=== PATIENT | female | born 1990 | race Two or more races ===

== ENCOUNTER 2019-10-18 14:43 | Emergency (ER) | payer OTHER ==
[~2019-10-18] VITALS: Ht 162.6 cm; Wt 77.1 kg
[2019-10-18 14:56] VITALS: BP 114/66
--- NOTE | 2019-10-18 15:03 | NUR ---
ED Nurse Note: Pt from home walked in due to right shoulder pain after a container fell on his right shoulder at work. Incident happened on 10/17/19 around 10pm. Ptis AAO x4, ambulatory. ROM intact and no obvious signs of fracture.
--- NOTE | 2019-10-18 15:27 | NUR ---
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
--- NOTE | 2019-10-18 15:38 | Emergency Room Report ---
History of Present Illness General Chief Complaint: Upper Extremity Injury Source: Patient Present Illness HPI 29 YO female presents to the ED C/O 10/18 in severity right shoulder pain/ S/p heavy box fell onto her right shoulder while at work yesterday. Pt. denies hitting her head. She reports pain is exacerbated with ROM of her right shoulder. She reports pain also in the musculature. She denies pain in the lower portion of the arm: elbow/wrist/hand. She denies shooting pain sensations. Denies numbness tingling or loss of sensation or gross motor movements of the extremities, incontinence of bowel or bladder. Denies CP, Palpitations, LOC, AMS, dizziness, Changes in Vision, weakness or a sudden severe headache. She denies midline neck or back pain. Pt. only PMHx. is DM. 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 Allergies: Coded Allergies: No Known Allergies (Unverified , 10/18/19) COVID-19 Screening Contact w/high risk pt: No Experienced COVID-19 symptoms?: No COVID-19 Testing performed [employer]IATION ELECT[employer]ICIAN: No Patient History Past Medical History: see triage record Past Surgical History: none Pertinent Family History: none Last Menstrual Period: 10/14/19 Now: No Reviewed Nursing Documentation: PMH: Agreed; PSxH: Agreed Nursing Documentation-PMH Past Medical History: No History, Except For Hx Diabetes: Yes Review of Systems All Other Systems: negative except mentioned in HPI Physical Exam Vital Signs Date Time Temp Pulse Resp B/P (MAP) Pulse Ox O2 Delivery O2 Flow Rate FiO2 10/18/19 14:56 99.1 68 17 114/66 (82) 98 Room Air Sp02 EP Interpretation: reviewed, normal General Appearance: no apparent distress, alert, GCS 15, non-toxic Head: normocephalic, atraumatic Eyes: bilateral eye normal inspection, bilateral eye PERRL ENT: hearing grossly normal, normal voice Neck: full range of motion - with some pain when raising above 90* , no bony tend - no midline ttp, tender lateral - right Respiratory: chest non-tender, lungs clear, normal breath sounds, no respiratory distress, no wheezing, speaking full sentences Cardiovascular #1: regular rate, rhythm Cardiovascular #2: 2+ radial (R), 2+ radial (L) Musculoskeletal: back normal, normal range of motion, gait/station normal, tender - right shoulder posteriolateral. FROM. NVI no bruising Neurologic: alert, motor strength/tone normal, oriented x3, sensory intact, responsive, speech normal, normal gait, grossly normal, no focal defects Psychiatric: judgement/insight normal Skin: normal color Medical Decision Making DERICK Gallegos is my supervising Physician whom patient management has been discussed with. Diagnostic Impression: Primary Impression: Contusion of right shoulder region Qualified Codes: S40.011A - Contusion of right shoulder, initial encounter ER Course 29 YO female presents to the ED C/O 10/18 in severity right shoulder pain/ S/p heavy box fell onto her right shoulder while at work yesterday. Pt. denies hitting her head. She reports pain is exacerbated with ROM of her right shoulder. She reports pain also in the musculature. She denies pain in the lower portion of the arm: elbow/wrist/hand. She denies shooting pain sensations. Denies numbness tingling or loss of sensation or gross motor movements of the extremities, incontinence of bowel or bladder. Denies CP, Palpitations, LOC, AMS, dizziness, Changes in Vision, weakness or a sudden severe headache. She denies midline neck or back pain. Pt. only PMHx. is DM. 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 Ddx considered but are not limited to Fracture, dislocation, contusion, Sprain/ Strain/Spasm, AC separation, rotator cuff injury. Vital signs: are WNL, pt. is afebrile H&PE are most consistent with musculoskeletal injury will perform imaging to r/ o fractures/dislocations. ORDERS: - X-ray Right Shoulder - negative for fx, Dislocation, or significant soft tissue injury, per preliminary read in ED, and signed by DERICK Lewis, my supervising physician has reviewed, and agrees with my interpretation. ED INTERVENTIONS: - Tylenol -Lidoderm patch DISCHARGE: At this time pt. is stable for d/c to home. Will provide printed patient care instructions, and any necessary prescriptions. Care plan and follow up instructions have been discussed with the patient prior to discharge. Other X-Ray Diagnostic Results Other X-Ray Diagnostic Results : X-Ray ordered: right shoulder # of Views/Limited Vs Complete: 3 View Indication: Pain EP Interpretation: Yes DERICK Xray: Interpretation reviewed, by supervising MD, and agrees with findings. Interpretation: no dislocation, no soft tissue swelling, no fractures Impression: No acute disease Electronically Signed by: Ricarda Lewis PA-C Last Vital Signs Date Time Temp Pulse Resp B/P (MAP) Pulse Ox O2 Delivery O2 Flow Rate FiO2 10/18/19 14:56 99.1 68 17 114/66 98 Room Air Disposition: HOME, SELF-CARE Condition: Stable Scripts Ibuprofen* (MOTRIN*) 600 Mg Tablet 600 MG ORAL THREE TIMES A DAY, #30 TAB Prov: Ricarda Lewis 10/18/19 Tramadol Hcl* (ULTRAM*) 50 Mg Tablet 50 MG ORAL Q6H PRN for For Pain, #10 TAB 0 Refills Prov: Ricarda Lewis 10/18/19 Referrals: NOT CHOSEN IPA/MD,REFERRING (PCP) Departure Forms: Return to Work Return to Work Date: Oct 22, 2019 Other Restrictions: light duty, limited use of right arm. may return if symptoms resolved. Return to Full Activity: Oct 29, 2019 Work Restrictions: No Heavy Lifting, No Prolonged Standing Patient Instructions: Contusion Additional Instructions: Take medications as directed. Do not drink alcohol, drive, or operate heavy machinery while taking Tramadol as this may cause drowsiness. Follow up with an ACCOUNTS EXECUTIVE in 3-5 days, even if your symptoms have resolved. If symptoms persist MRI may be required at the discretion of your PCP or Ortho Specialist. --Please review list of primary care clinics, if you do not already have a primary care provider who can give you an Orthopedic Referral. Return sooner to ED if new symptoms occur, or current symptoms become worse. Do not drink alcohol, drive, or operate heavy machinery while taking [place] as this may cause drowsiness. - Please note that this Emergency Department Report was dictated using ScreenMedixfigure clerk technology software, occasionally this can lead to erroneous entry secondary to interpretation by the dictation equipment. Ricarda Lewis Oct 18, 2019 15:38
--- NOTE | 2019-10-18 15:52 | Diagnostic Imaging Report ---
EXAM: XR Right Shoulder Complete, 2 or More Views CLINICAL HISTORY: PAIN TECHNIQUE: Two or more views of the right shoulder. COMPARISON: No relevant prior studies available. FINDINGS: Bones/joints: No acute fracture or dislocation. Soft tissues: No significant abnormality. IMPRESSION: No acute fracture or dislocation.
[2019-10-18] MEDS ORDERED: IBUPROFEN600 M1 ORAL (16:09)
[2019-10-18] MEDS ORDERED: TRAMADOL HCL50 MG ORAL (16:09)
[2019-10-18 16:15] VITALS: BP 122/75
--- NOTE | 2019-10-18 16:15 | NUR ---
ER DISCHARGE NOTE: Patient is cleared to be discharged per PA, pt is aox4, on room air, with stable vital signs. pt was given dc and prescription instructions, pt was able to verbalize understanding, pt id band removed. pt is able to ambulate with steady gait. pt took all belongings.
== END 2019-10-18 16:15 | disposition home or self-care (01) ==
LOC: EMR 15:18
DX: S40.011A Contusion of right shoulder, initial encounter (principal); W20.8XXA Other cause of strike by thrown, projected or falling object, initial encounter; Y92.9 Unspecified place or not applicable; E11.9 Type 2 diabetes mellitus without complications
CPT/HCPCS: 99283